=== PATIENT | female | born 1960 | race Caucasian/White ===

== ENCOUNTER 2024-06-14 06:06 | Day surgery (SDC) | payer OTHER ==
[~2024-06-14] VITALS: Ht 167.6 cm; Wt 107.3 kg
[~2024-06-14 06:06] MED LIST: ACET-66 PO; ALBU18HF12 IH; AZEL137S8 NASAL; BACL20TA PO; BUDE10.2 IH; BUPR-112 PO; CETI10TA58 PO; CHOL200074 PO; DICL100G60 TP; FAMO20TA8 PO; GABA-1181 PO; HYDR-4584 PO; IPRA3AMP24 NEB; KETO-99 OU; MONT-40 PO; NAPR-1197 PO; PRAZ2 PO; RIZA10TA98 PO; SILV20CR11 TP; TIOT4MIS5 IH; TRAZ-257 PO; VORT20TA PO
[2024-06-14] MEDS ORDERED: LIDOCAINE 2% 11 ML JELLY TP ONE (06:07)
[2024-06-14] MEDS ORDERED: ALBUTEROL SULFATE 2.5 MG/0.5 ML NEB SOLUTION NEB ONE (06:07)
[2024-06-14] MEDS ORDERED: BENZOCAINE 20% 50 MCG/SPRAY 57 GM TP ONE (06:07)
[2024-06-14] MEDS ORDERED: LIDOCAINE 4% 50 ML SOLUTION TP ONE (06:07)
[2024-06-14] MEDS ORDERED: FentaNYL CITRATE PF 100 MCG/2 ML VIAL ONE (08:13)
[2024-06-14] MEDS ORDERED: MIDAZOLAM HCL 2 MG/2 ML VIAL ONE (08:13)
[2024-06-14] MEDS: SODIUM CHLORIDE 0.9% 1,000 ML IV ONE (08:21)
[2024-06-14 09:37] VITALS: PULSE 81; RESP 16; O2SAT 98
[2024-06-14] MEDS ORDERED: MethylPREDNISolone SOD SUCC 125 MG/2 ML VIAL ONE (09:38)
[2024-06-14] MEDS: MethylPREDNISolone SOD SUCC 125 MG/2 ML VIAL IVP ONE (10:22)
== END 2024-06-14 14:30 | disposition home or self-care (01) ==
LOC: SURGERY 06:06
PROVIDERS: ATTEND Internal Medicine Critical Care Medicine
DX: R05.3 Chronic cough (principal); R06.2 Wheezing; R49.0 Dysphonia; R04.2 Hemoptysis; R06.1 Stridor; R91.1 Solitary pulmonary nodule; B37.0 Candidal stomatitis; J98.8 Other specified respiratory disorders; J98.09 Other diseases of bronchus, not elsewhere classified; Z90.49 Acquired absence of other specified parts of digestive tract; Z98.890 Other specified postprocedural states; Z88.0 Allergy status to penicillin; Z88.5 Allergy status to narcotic agent; Z88.8 Allergy status to other drugs, medicaments and biological substances
CPT/HCPCS: 87206; 87101; 87220; 87070; 88108; 31623; 31624; 94640; 71045; 87015; J3010; J2250; J2919; J7613; Z7610